=== PATIENT | female | born 1985 | race Caucasian/White ===

== ENCOUNTER 2025-02-08 20:58 | Emergency (ER) | payer SELFPAY ==
[2025-02-08 21:04] VITALS: BP 134/85; PULSE 87; RESP 16; TEMP 36.7; O2SAT 99
--- NOTE | 2025-02-08 21:16 | ED.GENADUL_ITS ---
Discharge Plan Disposition Patient Disposition: Home Condition: Stable Discharge Details Clinical Impression: Change of skin color Primary Care Provider: None,None ED Provider: Jeremi Liu Home Meds and New Rx's Prescriptions: New prednisone 20 mg tablet 60 mg PO DAILY 4 Days Qty: 12 0RF Continued levocetirizine [24HR Allergy Relief] 5 mg tablet 5 mg PO DAILY albuterol 90 mcg/actuation aerosol 90 mcg inhalation .q 4 hrs PRN Discharge Instructions Additional Instructions: Your blood work did not show any concerning findings at this time. Based on the description of the skin color change described I suspect you had a local skin reaction from something like on your skin. I did recommend trying to get set up with your primary care in case this becomes a recurrent issue. If you feel more ill or have severe swelling of your leg or calf tenderness return to the emergen cy department for reevaluation HPI General Mode of arrival: ambulatory . Date/Time Provider Initiated Documentation: 02/08/25 20:59 . Limitations to Documentation: no limitations . Information obtained by: patient . History of Present Illness 39 year old F presents to the emergency department with the chief complaint of legs were red and warm and itchy, described as moderate, Patient started experiencing this hour(s) (1) and it has been constant. No relieving factors improve symptom(s), No exacerbating factors reported . Patient notes denies chest pain and shortness of breath. Patient did receive the following treatments prior to arrival, none Related Data Home Medications ?Medication ?Instructions ?Recorded ?Confirmed albuterol 90 mcg/actuation aerosol 90 mcg inhalation . q 4 hrs PRN 02/08/25 02/08/25 inhaler levocetirizine 5 mg tablet (24HR 5 mg PO DAILY 5 02/08/25 Allergy Relief) prednisone 20 mg tablet 60 mg (3 x 20 mg) PO DAILY 4 days 02/08/25 #12 tabs Previous Rx's ?Medication ?Instructions ?Recorded prednisone 20 mg tablet 60 mg (3 x 20 mg) PO DAILY 4 days 02/08/25 #12 tabs Allergies Allergy/AdvReac Type Severity Reaction Status Date / Time NSAIDS (Non-Steroidal Allergy Severe Anaphylaxis Verified 02/08/25 21:03 Anti-Inflamma shellfish derived Allergy Severe Anaphylaxis Verified 02/08/25 21:03 amoxicillin Allergy Intermediate Hives Verified 02/08/25 21:03 sulfamethoxazole (From Allergy Intermediate abdominal Verified 02/08/25 21:03 Sept) pain and hives trimethoprim (From ) Allergy Intermediate abdominal Verified 02/08/25 21:03 pain and hives General Stated Complaint: RashLesion HERIBERTO: 4 Review of Systems All systems reviewed & are unremarkable except as noted in HPI and below Constitutional Constitutional: Denies chills, Denies fever(s) and Denies weakness Cardiovascular Cardiovascular: Denies chest pain and Denies dyspnea Respiratory Respiratory: Denies cough and Denies dyspnea Gastrointestinal Gastrointestinal: Denies abdominal pain, Denies nausea and Denies vomiting Integumentary/Breasts Skin/Breast: Reports erythema Neurologic Neurologic: Denies weakness Exam Const General: no acute distress Orientation: alert HENMT Head: normal to inspection Ears: external ears normal General nose exam: external nose normal Mouth: moist mucous membranes Eyes General: appearance normal, both eyes and all related structures Neck Neck: normal visual inspection Resp Effort & Inspection: normal respiratory effort and able to speak in complete sentences Cardio Rate: regular rate Skin General skin exam: no erythema Neuro General: patient alert and patient oriented x3 Extrem General: normal to inspection, full ROM and capillary refill normal Psych Mental Status: mental status grossly normal Course Vital Signs Vital signs: Vital Signs Temperature 36.7 C 02/08/25 21:04 Pulse 87 02/08/25 21:04 Respiratory Rate 16 02/08/25 21:04 Blood Pressure 134/85 02/08/25 21:04 Pulse Oximetry 99 02/08/25 21:04 Temperature 36.7 C 02/08/25 21:04 Temperature Source Oral 02/08/25 21:04 Pulse 87 02/08/25 21:04 Respiratory Rate 16 02/08/25 21:04 Blood Pressure 134/85 02/08/25 21:04 Blood Pressure Position Sitting 02/08/25 21:04 Pulse Oximetry 99 02/08/25 21:04 Oxygen Delivery Method Room Air 02/08/25 21:04 Oxygen Flow Rate 0 02/08/25 21:04 Pain Level 2 02/08/25 21:04 Medical Decision Making 39-year-old female comes in with complaints stating she was bending down moving objects when she started having blotches of redness on her lower extremities right more than the left and they were itchy and felt hot. She says that she never had any difficulty breathing or chest pain. She arrives stating her symptoms have improved and just has some mild itching and feeling like her legs are hot. She denies any falls. she is well-appearing in no distress. There is no rashes of her lower extremities. They are equal size. There is no calf tenderness she has intact sensation and pulses. Given acute onset of symptoms and the description of red patches of skin I suspect she has some type of localized allergic reaction. She has no symptoms such as anaphylaxis. She has no findings on exam to suggest DVT or an acute arterial occlusion. I will treat with prednisone and check basic labs and reassess. Labs unremarkable. Patient is stable, has no recurrent hives. Leading diagnosis would be allergic urticaria based on her description. She still has no leg swelling or calf tenderness so I doubt DVT. She does not have a PCP so recommend getting set up with someone in case this becomes a recurrent issue. Return precautions given Differential Diagnosis Differential Diagnosis: Allergic reaction, urticaria PFSH All Active Problems (Updated 02/08/25 @ 22:26 by Jeremi Liu MD) Change of skin color (Acute) Social History Smoking/Tobacco Use Status: Never Smoking risk assessment performed?: Yes Alcohol Intake: never Drug use: Rarely Substance use type: does not use Housing: house Do you feel safe at home: Yes Do you feel safe in your relationship?: Yes
[2025-02-08] MEDS: predniSONE 20 MG TAB 60 MG PO (21:25)
[2025-02-08 21:42] LABS: Abs Immature Grans 0.03 10^3/uL (0.0-0.06); HCT 37.3 % (36.0-46.0); HGB 12.9 g/dL (11.2-15.7); Immature Grans % 0.4 %; MCH 30.5 pg (27.0-33.0); MCHC 34.6 % (32.0-36.0); MCV 88 fL (80-95); MPV 9.4 fL (8.0-11.0); Platelet Count 246 10^3/uL (130-400); RBC 4.23 10^6/uL (3.93-5.22); RDW 11.8 % (11.7-14.6); RDW-SD 37.9 fL; WBC 7.97 10^3/uL (4.4-10.8)
[2025-02-08 21:52] LABS: Magnesium 1.9 mg/dL (1.8-2.4)
[2025-02-08 21:56] LABS: ALT 30 U/L (14-59); AST 13 U/L (15-37); Albumin 4.0 g/dL (3.4-5.0); Alkaline Phosphatase 34 U/L (46-116); Anion Gap 11.2 mmol/L (3-11); BUN 14 mg/dL (7-18); Bilirubin, Total 0.4 mg/dL (0.2-1.0); CO2 23.8 mmol/L (21.0-32.0); Calcium 8.9 mg/dL (8.5-10.1); Chloride 104 mmol/L (98-107); Estimated GFR 96.66 (mL/min/1.73m2); Glucose 99 mg/dL (74-106); Potassium 3.6 mmol/L (3.5-5.1); Sodium 139 mmol/L (136-145); Total Protein 7.1 g/dL (6.4-8.2)
[2025-02-08 22:38] VITALS: BP 130/84; PULSE 80; RESP 16; TEMP 36.5; O2SAT 100
== END 2025-02-08 22:40 | disposition home or self-care (01) ==
PROVIDERS: Emergency Provider Emergency Medicine
DX: R23.8 Other skin changes (principal)
CPT/HCPCS: 80053; 99283; 83735; 85025; J7512

== ENCOUNTER 2025-07-27 11:05 | Outpatient (REF) | payer SELFPAY ==
[2025-07-29 10:46] LABS: Myeloperoxidase Ab IgG <0.2 U (>=0.4)
[2025-08-01 11:37] LABS: June Grass IgE <0.10 kU/L (<0.70)
== END 2025-07-27 11:06 | disposition home or self-care (01) ==
LOC: LBN 11:05
PROVIDERS: PCP Nurse Practitioner Family; Visit Provider Internal Medicine Pulmonary Disease
DX: J45.909 Unspecified asthma, uncomplicated (principal)
CPT/HCPCS: 86003; 82785; 83516